=== PATIENT | female | born 1975 | race Two or more races ===

== ENCOUNTER 2021-02-03 21:04 | Emergency (ER) | payer MEDICAID ==
[~2021-02-03] VITALS: Ht 165.1 cm; Wt 72.7 kg
[2021-02-03] MEDS ORDERED: KETOROLAC TROMETHAMINE 30 MG/ML VIAL IM ONE (23:00)
[2021-02-04 01:42] VITALS: BP 124/74
== END 2021-02-04 01:48 | disposition home or self-care (01) ==
LOC: EMS 21:04
DX: S43.401A Unspecified sprain of right shoulder joint, initial encounter (principal); E05.90 Thyrotoxicosis, unspecified without thyrotoxic crisis or storm; W01.0XXA Fall on same level from slipping, tripping and stumbling without subsequent striking against object, initial encounter; Y93.89 Activity, other specified; Y92.89 Other specified places as the place of occurrence of the external cause; Y99.8 Other external cause status
CPT/HCPCS: 73030; 73050; 96372; 99285; J1885